=== PATIENT | female | born 1970 | race African-American/Black ===

== ENCOUNTER → 2016-12-26 | Outpatient (CLI) | payer OTHER ==
[~2016-12-26] MED LIST: GLUCOTROL PO; METFORMIN PO; [UNRECOGNIZED DRUG - REMARK]
--- NOTE | ~2016-12-26 | CT4 ---
[facility] A Service of [facility] RADIOLOGY TEXT RESULTS PATIENT: MARCOS RAYMUNDO LOCATION: [facility] : 68 UNIT #: [id number] AGE: [address]: Yojana Flood APRN SEX: F ORDER DR: [id number] [facility] [address] [place], [place] [address] [id number] O MR#: [id number] [facility] #: [id number] NAME: MARCOS RAYMUNDO : 1970 SEX: F STUDY DATE/TIME: 12/26/2016 13:52 UNIT: [facility] ROOM: STUDY DESCRIPTION: CT Abd and Pelv Wo Cont Attending Physician: Yojana Flood A.P.R.N. Referring Physician: Yojana Flood A.P.R.N. Ordering Physician: Idalia Flood Primary Care Physician: Yojana Flood A.P.R.N. MEDICAL IMAGING REPORT This report is preliminary unless electronic signature is present EXAM CT abdomen and pelvis without contrast INDICATIONS Left lower quadrant abdominal pain and diarrhea for the past month. PROCEDURE Unenhanced CT of the abdomen and pelvis. This CT exam was performed with one or more of the following radiation dose reduction techniques: automatic exposure control, adjustment of mA and/or kV according to patient size, and iterative reconstruction. COMPARISON 10/12/2010 FINDINGS Abdomen without contrast: Included lung bases are clear. Liver borderline enlarged and 19.2 cm. Spleen, kidneys unremarkable. A 1.8-cm benign left adrenal adenoma. The pancreas, gallbladder have an unremarkable unenhanced appearance. The bowel loops are nondilated. Appendix is normal. Pelvis without contrast: No pelvic mass or fluid. No aggressive appearing bone lesion. IMPRESSION 1. Mild hepatomegaly. 2. No acute findings in the abdomen or pelvis. Dictated by... Julian Castillo M.D. THIS IS AN ELECTRONICALLY VERIFIED REPORT [facility] A Service [facility] RADIOLOGY TEXT RESULTS PATIENT: MARCOS RAYMUNDO LOCATION: [facility] : 68 UNIT #: [id number] AGE: [address]: Yojana Flood APRN SEX: F ORDER DR: Julian Castillo M.D. at 12/27/2016 7:09 AM EED/to TD: 12/26/2016 20:18 JOB #: [id number] MEDICAL IMAGING REPORT Page 1 of 1 COPY
== END | disposition home or self-care (01) ==
LOC: CCAT 13:15
DX: R10.32 Left lower quadrant pain (principal); R16.0 Hepatomegaly, not elsewhere classified
CPT/HCPCS: 74176